=== PATIENT | female | born 1960 | race Caucasian/White ===

== ENCOUNTER 2024-04-29 21:31 | Observation (INO) ==
--- NOTE | 2024-04-29 22:07 | EKG ---
Test Reason : sob Blood Pressure : */* mmHG Vent. Rate : 107 BPM Atrial Rate : 107 BPM P-R Int : 244 ms QRS Dur : 72 ms QT Int : 306 ms P-R-T Axes : 54 86 68 degrees QTc Int : 408 ms Sinus tachycardia with 1st degree AV block with premature supraventricular complexes Minimal voltage criteria for LVH, may be normal variant ( Brent product ) Borderline ECG When compared with ECG of 16-JAN-2024 21:24, premature supraventricular complexes are now present NM interval has increased T wave inversion no longer evident in Inferior leads Confirmed by Julián Bowers MD ([id number]) on 04/30/2024 7:01:46 AM Referred By: Confirmed By: Julián Bowers MD
--- NOTE | 2024-04-29 22:09 | DR.FBACK ---
HPI Time Seen Time Seen by Provider: 04/29/24 21:55 PCP Primary Care Physician: Tessa HPI Comment HPI Comment: History as below. Complaint Chief Complaint Doctor Comments: Patient is 64yr old female in ER with Chief Complaint:: pt and family states" she has been disorentied at nights but is normal throughout the day. She also complained of lower back pain but has since resolved." COVID-19 Coronavirus risk:travel/contact w/high risk person: No Has patient experienced Coronavirus symptoms: No Reviewed Nurses Notes Review: Yes Source History Provided: Patient Mode of Arrival Mode of Arrival: Wheelchair Timing Onset of Chief Complaint: 04/29/24 PMH PMH Past Medical History: Yes Past Medical History: Anxiety, Arthritis, Asthma, COPD, Migraines, Headaches, Hypertension and Cancer Past Surgical History: Yes Surgical History: Appendectomy and Mastectomy Past Surgical History Comment: Breast Family History History of Family Medical Conditions: Yes Family Medical History: Diabetes Mellitus, Cancer, [place], Coronary Artery Disease and Hypertension Social History Do you use any recreational Drugs:: No Travel Risk Coronavirus risk:travel/contact w/high risk person: No Has patient experienced Coronavirus symptoms: No Infectious screening In the last 2 months have you had wt loss of >10#?: NO Have you had fever, night sweats or hemotysis?: No Have you traveled outside the country in the last 6 months?: No Isolation: Standard ROS Review of Systems Constitutional: No Symptoms Reported Eyes: No Symptoms Reported ENTM: No Symptoms Reported Respiratoy: No Symptoms Reported Cardiovascular: No Symptoms Reported Gastrointestinal/Abdominal: No Symptoms Reported Genitourinary: No Symptoms Reported Neurological: No Symptoms Reported Musculoskeletal: No Symptoms Reported Integumentary: No Symptoms Reported Hematologic/Lymphatic: No Symptoms Reported Endocrine: No Symptoms Reported Psychiatric: No Symptoms Reported All Other Systems: Reviewed and Negative PE Vitals Vital Signs: Temp Pulse Resp BP Pulse Ox O2 Del Method O2 Flow Rate 04/30/24 02:15 91 H 29 H 90 L 04/30/24 02:00 91 H 27 H 91 L 04/30/24 01:45 90 31 H 92 L 04/30/24 01:30 90 28 H 93 L 04/30/24 01:15 91 H 27 H 94 L 04/30/24 01:00 92 H 30 H 95 04/30/24 00:45 91 H 24 91 L 04/30/24 00:41 95 H 31 H 88 L Nasal Cannula 4 04/30/24 00:15 94 H 29 H 93 L Nasal Cannula 4 04/30/24 00:00 94 H 29 H 90 L Nasal Cannula 4 04/29/24 23:45 94 H 29 H 92 L Nasal Cannula 4 04/29/24 23:30 96 H 31 H 93 L Nasal Cannula 4 04/29/24 23:15 96 H 29 H 92 L Nasal Cannula 4 04/29/24 23:03 104 H 85 L Nasal Cannula 4 04/29/24 22:51 99 H 30 H 88 L Nasal Cannula 4 04/29/24 22:30 123/57 04/29/24 22:30 123/57 04/29/24 22:30 123/57 04/29/24 22:30 123/57 04/29/24 22:30 123/57 04/29/24 22:30 103 H 31 H 91 L Nasal Cannula 3 04/29/24 22:30 103 H 31 H 91 L Nasal Cannula 3 04/29/24 22:15 104 H 36 H 91 L Nasal Cannula 3 04/29/24 22:00 119/57 04/29/24 22:00 104 H 35 H 88 L Nasal Cannula 04/29/24 21:59 105 H 32 H 88 L Nasal Cannula 3 04/29/24 21:51 98.1 F 120 H 24 142/65 87 L General Limitations: No Limitations General Appearance: Alert and In Distress Head Head Exam: Normal Inspection Eyes Eye exam: Normal Appearance; negative Scleral Icterus or Conjunctival Injection ENT ENT Exam: Normal Exam, Normal Oropharynx, Normal External Ear Exam and TM's Normal Bilaterally Chest Chest Inspection: Normal Inspection and Symmetric Chest Wall Rise; negative Tenderness Respiratory Respiratory Exam: Normal Lung Sounds Bilat and Accessory Muscle Use; negative Chest Wall Tenderness Respiratory Exam: Bilateral: Wheezing and Bilateral: Rhonchi Cardiovascular Cardiovascular Exam: Regular Rate, Normal Rhythm and Normal Heart Sounds; negative Systolic Murmur or Diastolic Murmur Abdominal Exam Abdominal Exam: Normal Inspection, Normal Bowel Sounds and Soft; negative Tenderness Genitourinary External Exam: Female: Deferred : Speculum Exam (Female): Deferred : Bimanual Exam (female): Deferred Extremities Extremities Exam: Normal Inspection Back Back Exam: Normal Inspection; negative (R) CVA Tenderness or (L) CVA Tenderness Neurological Neurological Exam: Alert and Oriented X3; negative Motor Sensory Deficit Psychiatric Psychiatric Exam: Normal Affect and Normal Mood Skin Skin Exam: Warm and Intact MDM Differential Diagnosis Differential Diagnosis: DJD, Musculoskeletal Pain, Pyelonephritis (AMS, UTI, COPD EXACERBATION, BRONCHITIS) and Strain ROR Labs Reviewed 04/29/24 22:02 04/29/24 22:02 Laboratory: WBC 15.2 X10^3/uL (3.6-10.0) H 04/29/24 22:02 RBC 4.96 X10^6/uL (3.5-5.4) 04/29/24 22:02 Hgb 14.2 g/dL (12.0-16.0) 04/29/24 22:02 Hct 44.0 % (36.0-47.0) 04/29/24 22:02 MCV 88.8 fL (80.0-100.0) 04/29/24 22:02 MCH 28.7 pg (27.0-34.0) 04/29/24 22:02 MCHC 32.4 g/dL (33.0-35.0) L 04/29/24 22:02 RDW 16.9 % (11.6-16.5) H 04/29/24 22:02 Plt Count 220 X10^3/uL (150.0-450.0) 04/29/24 22:02 MPV 7.5 fL (7.4-11.0) 04/29/24 22:02 Neut % (Auto) 80.0 % (42.0-75.0) H 04/29/24 22:02 Lymph % (Auto) 10.8 % (21.0-51.0) L 04/29/24 22:02 [place] % (Auto) 8.0 % (0.0-13.0) 04/29/24 22:02 Eos % (Auto) 0.3 % (0.9-2.9) L 04/29/24 22:02 Baso % (Auto) 0.9 % (0.2-1.0) 04/29/24 22:02 Neut # (Auto) 12.1 x10^3/uL (2.2-4.8) H 04/29/24 22:02 Lymph # (Auto) 1.6 X10^3/uL (1.3-2.9) 04/29/24 22:02 [place] # (Auto) 1.2 x10^3/uL (0.3-0.8) H 04/29/24 22:02 Eos # (Auto) 0.0 x10^3/uL (0.0-0.2) 04/29/24 22:02 Baso # (Auto) 0.1 X10^3/uL (0.0-0.1) 04/29/24 22:02 Absolute Nucleated RBC 0.0 /100WBC 04/29/24 22:02 PT 13.9 SECONDS (11.8-14.3) 04/29/24 21:45 INR Target Range - 04/29/24 21:45 INR 1.09 (0.8-1.3) 04/29/24 21:45 APTT 28.7 SECONDS (22.9-36.5) 04/29/24 21:45 PTT Comment - 04/29/24 21:45 Sample Site Lbra 04/29/24 22:32 ABG pH 7.390 (7.35-7.45) 04/29/24 22:32 ABG pCO2 73.0 mmHg (35.0-45.0) H* 04/29/24 22:32 ABG pO2 51.0 mmHg (80.0-100.0) L 04/29/24 22:32 ABG HCO3 44.2 mmol/L (22-26) H* 04/29/24 22:32 ABG O2 Saturation 85.0 % (90-100) L 04/29/24 22:32 ABG Base Excess 15.8 mmol/L (-2.0-2.0) H 04/29/24 22:32 Abdi Test Na 04/29/24 22:32 A-a Gradient 86.0 mmHg 04/29/24 22:32 FiO2 32.0 04/29/24 22:32 Blood Gas Comments Marcus abg well-mtf 04/29/24 22:32 Sodium 140 mmol/L (136-145) 04/29/24 22:02 Corrected Sodium TNP 04/29/24 22:02 Potassium 4.0 mmol/L (3.5-5.1) 04/29/24 22:02 Chloride 100 mmol/L (98-107) 04/29/24 22:02 Carbon Dioxide 38.8 mmol/L (21-32) H 04/29/24 22:02 BUN 11 mg/dL (7-18) 04/29/24 22:02 Creatinine 0.53 mg/dL (0.55-1.02) L 04/29/24 22:02 Est GFR (MDRD) Af Amer > 60 (>60) 04/29/24 22:02 Est GFR (MDRD) Non-Af > 60 (>60) 04/29/24 22:02 Glucose 104 mg/dL (65-99) H 04/29/24 22:02 Calcium 8.4 mg/dL (8.5-10.1) L 04/29/24 22:02 Corrected Calcium 9.4 mg/dL (8.5-10.1) 04/29/24 22:02 Magnesium 1.8 mg/dL (2.0-2.9) L 04/29/24 22:02 Total Bilirubin 0.50 mg/dL (0.2-1.0) 04/29/24 22:02 AST 16 Units/L (15-37) 04/29/24 22:02 ALT 10 Units/L (12-78) L 04/29/24 22:02 Alkaline Phosphatase 99 Units/L (46-116) 04/29/24 22:02 Creatine Kinase 47 Units/L (26-192) 04/29/24 22:02 Troponin I High Sens 8.8 ng/L (4.0-60.0) 04/29/24 22:02 B-Natriuretic Peptide 105 pg/mL (0-79) H 04/29/24 22:02 Total Protein 7.4 g/dL (6.4-8.2) 04/29/24 22:02 Albumin 2.7 g/dL (3.4-5.0) L 04/29/24 22:02 Globulin 4.7 g/dL (2.5-4.5) H 04/29/24 22:02 Albumin/Globulin Ratio 0.6 Ratio (1.1-2.1) L 04/29/24 22:02 Specimen Type Clean catch urine 04/29/24 23:04 Urine Color Yellow (YELLOW) 04/29/24 23:04 Urine Appearance Cloudy (CLEAR) 04/29/24 23:04 Urine pH 8.0 (5.0 - 8.0) 04/29/24 23:04 Ur Specific [place] 1.015 (1.000-1.030) 04/29/24 23:04 Urine Protein Negative (NEGATIVE) 04/29/24 23:04 Urine Glucose (UA) Negative (NEGATIVE) 04/29/24 23:04 Urine Ketones Negative (NEGATIVE) 04/29/24 23:04 Urine Blood Negative (NEGATIVE) 04/29/24 23:04 Urine Nitrite Negative (NEGATIVE) 04/29/24 23:04 Urine Bilirubin Negative (NEGATIVE) 04/29/24 23:04 Urine Urobilinogen 2+ (NORMAL) 04/29/24 23:04 Ur Leukocyte Esterase 1+ (NEGATIVE) 04/29/24 23:04 Urine RBC 0-2 /HPF (0-3) 04/29/24 23:04 Urine WBC 0-2 /HPF (0-5) 04/29/24 23:04 Ur Squamous Epith Cells Rare /HPF (NEGATIVE) 04/29/24 23:04 Amorphous Sediment 4+ /HPF (NEGATIVE) 04/29/24 23:04 Urine Bacteria Negative /HPF (NEGATIVE) 04/29/24 23:04 Urine Mucus Moderate /HPF (NEGATIVE) 04/29/24 23:04 Ur Culture Indicated? No/not indicated 04/29/24 23:04 SARS-CoV-2 (PCR) Negative (NEGATIVE) 04/30/24 00:39 Influenza Type A (PCR) Negative (NEGATIVE) 04/30/24 00:39 Influenza Type B (PCR) Negative (NEGATIVE) 04/30/24 00:39 RSV (PCR) Negative (NEGATIVE) 04/30/24 00:39 Opioid Opioid Risk Tool Age (Ancelmo box if 16-45): No History of Preadolescent Sexual Abuse: No Total: 0 Total Score Risk Category: Low Risk Copyright: Fabricio RAMOS predicting aberrant behaviors Discharge Plan Diagnosis Discharge Problem: COPD exacerbation, Bronchitis, Hypercapnic respiratory failure, chronic, Hypoxia, AMS (altered mental status) Discharge Plan Patient Disposition: 09 ADMITTED INPATIENT Condition: Stable Orders to Discharge Patient Discharge Orders: Transfer (Routine); Ordered 04/30/24 Ordered By: ADRIENNE VILLELA
[2024-04-29 22:10] LABS: BASOPHILS # (AUTO) 0.1 X10^3/uL (0.0-0.1); BASOPHILS % (AUTO) 0.9 % (0.2-1.0); EOSINOPHILS % (AUTO) 0.3 % (0.9-2.9); HEMOGLOBIN 14.2 g/dL (12.0-16.0); LYMPHOCYTES # (AUTO) 1.6 X10^3/uL (1.3-2.9); LYMPHOCYTES % (AUTO) 10.8 % (21.0-51.0); MEAN CORPUSCULAR HEMOGLOBIN 28.7 pg (27.0-34.0); MEAN CORPUSCULAR HGB CONC 32.4 g/dL (33.0-35.0); MEAN CORPUSCULAR VOLUME 88.8 fL (80.0-100.0); MEAN PLATELET VOLUME 7.5 fL (7.4-11.0); MONOCYTES # (AUTO) 1.2 x10^3/uL (0.3-0.8); NEUTROPHILS # (AUTO) 12.1 x10^3/uL (2.2-4.8); PLATELET COUNT 220 X10^3/uL (150.0-450.0); RED BLOOD COUNT 4.96 X10^6/uL (3.5-5.4); RED CELL DISTRIBUTION WIDTH 16.9 % (11.6-16.5); WHITE BLOOD COUNT 15.2 X10^3/uL (3.6-10.0)
[2024-04-29 22:17] LABS: INR 1.09 (0.8-1.3)
[2024-04-29 22:29] LABS: ALANINE AMINOTRANSFERASE 10 Units/L (12-78); ALBUMIN 2.7 g/dL (3.4-5.0); ALKALINE PHOSPHATASE 99 Units/L (46-116); ASPARTATE AMINO TRANSFERASE 16 Units/L (15-37); BLOOD UREA NITROGEN 11 mg/dL (7-18); CALCIUM 8.4 mg/dL (8.5-10.1); CARBON DIOXIDE 38.8 mmol/L (21-32); CHLORIDE 100 mmol/L (98-107); COR CA(FOR HYPOALB) 9.4 mg/dL (8.5-10.1); CREATINE KINASE 47 Units/L (26-192); CREATININE 0.53 mg/dL (0.55-1.02); GLUCOSE 104 mg/dL (65-99); MAGNESIUM 1.8 mg/dL (2.0-2.9); SODIUM 140 mmol/L (136-145); TOTAL PROTEIN 7.4 g/dL (6.4-8.2); eGFR NON BLACK RACES > 60 (>60)
[2024-04-29 22:38] LABS: ABG BASE EXCESS 15.8 mmol/L (-2.0-2.0)
[2024-04-29 22:40] LABS: ABG HCO3 44.2 mmol/L (22-26)
--- NOTE | 2024-04-29 23:05 | RAD ---
EXAM: CHEST X-RAYHISTORY: Shortness of breath.TECHNIQUE: AP and lateral chest x-ray.COMPARISON: None available.FINDINGS:The heart size and mediastinum are within normal limits. The visualized bony structures are within normal limits.There is asymmetrical prominence of the bronchopulmonary markings throughout the right lung; DDX includes mild asymmetrical noncardiogenic pulmonary congestion, bronchitis, and acute bronchopneumonia in the appropriate clinical setting. Clinical correlation is advised.There is blunting of the right lateral costophrenic angle consistent with a small pleural effusion.There is lung parenchymal hyperinflation/hyperlucency consistent with COPD/emphysema. No pneumothorax is seen.IMPRESSION:1. Asymmetrical prominence of the bronchopulmonary markings throughout the right lung; DDX includes mild asymmetrical noncardiogenic pulmonary congestion, bronchitis, and acute bronchopneumonia in the appropriate clinical setting. Clinical correlation is advised.2. Blunting of the right lateral costophrenic angle consistent with a small pleural effusion.3. Lung parenchymal hyperinflation/hyperlucency consistent with COPD/emphysema. No pneumothorax is seen.4. Recommend clinical correlation and appropriate follow-up x-ray evaluation to ensure interval clearance as clinically warranted.5. Consider follow evaluation with noncontrast chest CT for further characterization as clinically warranted.THIS IS AN ELECTRONICALLY VERIFIED FINAL REPORT04/29/2024 11:02 PM - Electronically signed by Tamiko Chatman MD
[2024-04-29 23:13] LABS: BILIRUBIN,URINE NEGATIVE (NEGATIVE); BLOOD/HEMOGLOBIN,URINE NEGATIVE (NEGATIVE); GLUCOSE, URINE NEGATIVE (NEGATIVE); KETONES,URINE NEGATIVE (NEGATIVE); LEUKOCYTE ESTERASE ,URINE 1+ (NEGATIVE); NITRITES,URINE NEGATIVE (NEGATIVE); PROTEIN,URINE NEGATIVE (NEGATIVE); UROBILINOGEN,URINE 2+ (NORMAL)
[2024-04-29 23:16] LABS: APPEARANCE,URINE CLOUDY (CLEAR); COLOR,URINE YELLOW (YELLOW)
[2024-04-29 23:26] LABS: BACTERIA,URINE NEGATIVE /HPF (NEGATIVE); RBC,URINE 0-2 /HPF (0-3); SQUAMOUS EPITHELIAL CELL,UR RARE /HPF (NEGATIVE)
[2024-04-30] MEDS: SOLU-Medrol 125 MG VIAL IVP ONE (00:43)
[2024-04-30] MEDS: DUONEB 0.5 MG/3 MG (3 mL) NEB ONE (00:47)
--- NOTE | 2024-04-30 00:57 | CT ---
EXAM:BRAIN W/O CONHISTORY:AMS;COMPARISON:None. .br.br skullbase to the vertex using standard departmental protocol. Sagittal and coronal reformatted images were performed. Dose reduction techniques including Automated Exposure Control (AEC) and adjustment of mA and kV were utilized.FINDINGS:The sulci, cisterns and ventricles are age appropriate. Mild cortical atrophy compatible with patient's age. There is no evidence of acute territorial infarction, hemorrhage, mass, mass effect or midline shift. There are no abnormal intra-axial or extra-axial fluid collections. The visualized paranasal sinuses and mastoid air cells are predominantly clear.IMPRESSION:No evidence of acute intracranial abnormality.THIS IS AN ELECTRONICALLY VERIFIED FINAL REPORT04/30/2024 12:54 AM - Electronically signed by Kemar Park MD
[2024-04-30] MEDS: NS 1,000 ML IV 1,000 ML IV SCH (03:38)
[2024-04-30 04:55] LABS: BASOPHILS # (AUTO) 0.1 X10^3/uL (0.0-0.1); BASOPHILS % (AUTO) 0.5 % (0.2-1.0); HEMATOCRIT 41.8 % (36.0-47.0); HEMOGLOBIN 13.4 g/dL (12.0-16.0); LYMPHOCYTES # (AUTO) 0.6 X10^3/uL (1.3-2.9); LYMPHOCYTES % (AUTO) 5.1 % (21.0-51.0); MEAN CORPUSCULAR HEMOGLOBIN 28.6 pg (27.0-34.0); MEAN CORPUSCULAR HGB CONC 32.1 g/dL (33.0-35.0); MEAN PLATELET VOLUME 8.1 fL (7.4-11.0); MONOCYTES # (AUTO) 0.2 x10^3/uL (0.3-0.8); MONOCYTES % (AUTO) 1.8 % (0.0-13.0); NEUTROPHILS % (AUTO) 92.6 % (42.0-75.0); PLATELET COUNT 190 X10^3/uL (150.0-450.0); RED BLOOD COUNT 4.69 X10^6/uL (3.5-5.4); WHITE BLOOD COUNT 11.9 X10^3/uL (3.6-10.0)
[2024-04-30 05:02] LABS: BLOOD UREA NITROGEN 12 mg/dL (7-18); CALCIUM 8.6 mg/dL (8.5-10.1); CARBON DIOXIDE 37.1 mmol/L (21-32); CHLORIDE 100 mmol/L (98-107); COR NA(FOR HYPERGLY) 139 mmol/L (136-145); CREATININE 0.46 mg/dL (0.55-1.02); GLUCOSE 146 mg/dL (65-99); POTASSIUM 4.2 mmol/L (3.5-5.1); SODIUM 138 mmol/L (136-145); eGFR NON BLACK RACES > 60 (>60)
[2024-04-30 05:18] LABS: INR 1.16 (0.8-1.3)
[2024-04-30] MEDS ORDERED: DUONEB 0.5 MG/3 MG (3 mL) NEB SCH (06:00)
[2024-04-30] MEDS: DUONEB 0.5 MG/3 MG (3 mL) NEB SCH (06:18)
[2024-04-30 06:27] LABS: ABG BASE EXCESS 14.1 mmol/L (-2.0-2.0)
[2024-04-30 06:28] LABS: ABG HCO3 43.1 mmol/L (22-26)
[2024-04-30 06:33] LABS: ANISOCYTOSIS SLIGHT; PLATELET MORPHOLOGY COMMENT NORMAL (NORMAL)
[2024-04-30 06:34] LABS: STOMATOCYTES PRESENT
[2024-04-30] MEDS ORDERED: CONSULT PHARMACY - POTASSIUM & MAGNESIUM XX SCH (07:00)
[2024-04-30] MEDS: PULMICORT NEB TX 0.5 MG NEB SCH (08:43)
[2024-04-30] MEDS: LEVAQUIN PREMIX IV 500 MG 500 MG/100 ML BAG IV SCH (09:13)
[2024-04-30] MEDS: VISBIOME PROBIOTIC CAP 112.5 B or equivalent PO SCH (09:13)
[2024-04-30] MEDS: MAG-OX TAB PO SCH (09:13)
[2024-04-30] MEDS ORDERED: PATIENT'S HOME MEDICATION (Fluticasone-Umeclidin-Vilanter [Trelegy Ellipta] 100-62.5-25 mc IN SCH (13:45)
[2024-04-30] MEDS: NICOTINE PATCH TD SCH (14:17)
[2024-04-30] MEDS: LIPITOR TAB 40 MG PO SCH (14:18)
[2024-04-30] MEDS: ZOLOFT PO SCH (14:18)
[2024-04-30] MEDS: SOLU-Medrol 40 MG VIAL IVP ONE (14:18)
[2024-04-30] MEDS: NEURONTIN CAP 400 MG PO SCH (14:18)
[2024-04-30] MEDS: ZOLOFT ONE (14:24)
[2024-04-30] MEDS: CALCIUM CARBONATE PO SCH (14:27)
[2024-04-30] MEDS: VITAMIN D3 PO SCH (14:27)
--- NOTE | 2024-04-30 14:56 | DR.H&P ---
H&P History & Physical for Day of: H&P Date: 04/30/24 Chief Complaint Chief Complaint: AMS History of Present Illness History of Present Illness: Patient brought to the ER by family due to delirium at night. Has been occurring for a couple of weeks. In the ER she was found to be in chronic hypercapnic respiratory failure with acute hypoxemic respiratory failure. Did well with BiPAP overnight. Reports she feels like she is almost back at baseline and was want to go home today. She is willing to stay. She was a daily smoker until yesterday per her report. ROS: Positive for cough, dyspnea, and fatigue. 12 point ROS otherwise negative. PE: Extremely thin, elderly female in no acute distress. Trachea midline. Head NCAT. EOMI. Hearing intact conversation. Heart regular rate and rhythm. Lungs greatly diminished with fair aeration. Bowel sounds are present and belly is soft/nontender/nondistended. Mood and affect are appropriate. No swelling of her extremities. Past Medical History Past Medical History: Anxiety, Arthritis, Asthma, COPD, Migraines, Headaches, Hypertension and Cancer Past Surgical History Surgical History: Appendectomy and Mastectomy Family History Family Medical History: Diabetes Mellitus, Cancer, [place], Coronary Artery Disease and Hypertension Social History Does patient currently use any type of tobacco product: Yes Type of Tobacco Use: Cigarettes How many years tobacco product used: 50 Alcohol Use: None Drug Use: None Medications Home Medications: Home Medications Medication Instructions Recorded Confirmed Type atorvastatin 40 mg tablet 40 mg PO QDAY 01/16/24 04/30/24 History calcium carbonate-vitamin D3 600 1 tab PO DAILY 01/16/24 04/30/24 History mg-125 unit tablet fluticasone fur. 100 mcg-umeclid 1 ea inhalation QDAY 01/16/24 04/30/24 History 62.5 mcg-vilant 25 mcg inhalat.powder (Trelegy Ellipta) gabapentin 800 mg tablet 800 mg PO TID 01/16/24 04/30/24 History losartan 25 mg tablet 25 mg PO QDAY 01/16/24 04/30/24 History sertraline 100 mg tablet 100 mg PO QDAY 01/16/24 04/30/24 History tizanidine 4 mg tablet 4 mg PO QPM PRN 01/16/24 04/30/24 History albuterol sulfate 90 mcg/actuation 1 puff inhalation Q4H PRN wheezing 04/30/24 04/30/24 History aerosol inhaler Allergies Allergies Allergy/AdvReac Type Severity Reaction Status Date / Time Penicillins Allergy Verified 01/16/24 21:19 Labs 04/30/24 04:15 04/30/24 04:15 Labs: 04/29/24 22:02 Blood Blood Culture Gram Stain - Final 04/30/24 04:32 Sputum - Expectorated Sputum - Final Laboratory WBC 11.9 X10^3/uL (3.6-10.0) H 04/30/24 04:15 RBC 4.69 X10^6/uL (3.5-5.4) 04/30/24 04:15 Hgb 13.4 g/dL (12.0-16.0) 04/30/24 04:15 Hct 41.8 % (36.0-47.0) 04/30/24 04:15 MCV 89.0 fL (80.0-100.0) 04/30/24 04:15 MCH 28.6 pg (27.0-34.0) 04/30/24 04:15 MCHC 32.1 g/dL (33.0-35.0) L 04/30/24 04:15 RDW 17.0 % (11.6-16.5) H 04/30/24 04:15 Plt Count 190 X10^3/uL (150.0-450.0) 04/30/24 04:15 Plt Count Comment Adequate (ADEQUATE) 04/30/24 04:15 MPV 8.1 fL (7.4-11.0) 04/30/24 04:15 Neut % (Auto) 92.6 % (42.0-75.0) H 04/30/24 04:15 Lymph % (Auto) 5.1 % (21.0-51.0) L 04/30/24 04:15 [place] % (Auto) 1.8 % (0.0-13.0) 04/30/24 04:15 Eos % (Auto) 0.0 % (0.9-2.9) L 04/30/24 04:15 Baso % (Auto) 0.5 % (0.2-1.0) 04/30/24 04:15 Neut # (Auto) 11.0 x10^3/uL (2.2-4.8) H 04/30/24 04:15 Lymph # (Auto) 0.6 X10^3/uL (1.3-2.9) L 04/30/24 04:15 [place] # (Auto) 0.2 x10^3/uL (0.3-0.8) L 04/30/24 04:15 Eos # (Auto) 0.0 x10^3/uL (0.0-0.2) 04/30/24 04:15 Baso # (Auto) 0.1 X10^3/uL (0.0-0.1) 04/30/24 04:15 Absolute Nucleated RBC 0.0 /100WBC 04/30/24 04:15 Total Counted 100 04/30/24 04:15 Neutrophils % (Manual) 92 % (39-76) H 04/30/24 04:15 Lymphocytes % (Manual) 6 % (13-43) L 04/30/24 04:15 Monocytes % (Manual) 2 % (4-9) L 04/30/24 04:15 Plt Morphology Comment Normal (NORMAL) 04/30/24 04:15 RBC Morphology Abnormal (NORMAL) A 04/30/24 04:15 Anisocytosis Slight A 04/30/24 04:15 Stomatocytes Present 04/30/24 04:15 PT 14.6 SECONDS (11.8-14.3) 04/30/24 04:15 INR Target Range - 04/30/24 04:15 INR 1.16 (0.8-1.3) 04/30/24 04:15 APTT 29.6 SECONDS (22.9-36.5) 04/30/24 04:15 PTT Comment - 04/30/24 04:15 Sample Site Lbra 04/30/24 06:22 ABG pH 7.350 (7.35-7.45) 04/30/24 06:22 ABG pCO2 78.0 mmHg (35.0-45.0) H* 04/30/24 06:22 ABG pO2 53.0 mmHg (80.0-100.0) L 04/30/24 06:22 ABG HCO3 43.1 mmol/L (22-26) H* 04/30/24 06:22 ABG O2 Saturation 85.0 % (90-100) L 04/30/24 06:22 ABG Base Excess 14.1 mmol/L (-2.0-2.0) H 04/30/24 06:22 Abdi Test Na 04/30/24 06:22 A-a Gradient 106.0 mmHg 04/30/24 06:22 FiO2 36.0 04/30/24 06:22 Blood Gas Comments Marcus abg well-mtf 04/30/24 06:22 Sodium 138 mmol/L (136-145) 04/30/24 04:15 Corrected Sodium 139 mmol/L (136-145) 04/30/24 04:15 Potassium 4.2 mmol/L (3.5-5.1) 04/30/24 04:15 Chloride 100 mmol/L (98-107) 04/30/24 04:15 Carbon Dioxide 37.1 mmol/L (21-32) H 04/30/24 04:15 BUN 12 mg/dL (7-18) 04/30/24 04:15 Creatinine 0.46 mg/dL (0.55-1.02) L 04/30/24 04:15 Est GFR (MDRD) Af Amer > 60 (>60) 04/30/24 04:15 Est GFR (MDRD) Non-Af > 60 (>60) 04/30/24 04:15 Glucose 146 mg/dL (65-99) H 04/30/24 04:15 Calcium 8.6 mg/dL (8.5-10.1) 04/30/24 04:15 Corrected Calcium 9.4 mg/dL (8.5-10.1) 04/29/24 22:02 Magnesium 1.8 mg/dL (2.0-2.9) L 04/30/24 04:15 Total Bilirubin 0.50 mg/dL (0.2-1.0) 04/29/24 22:02 AST 16 Units/L (15-37) 04/29/24 22:02 ALT 10 Units/L (12-78) L 04/29/24 22:02 Alkaline Phosphatase 99 Units/L (46-116) 04/29/24 22:02 Creatine Kinase 47 Units/L (26-192) 04/29/24 22:02 Troponin I High Sens 8.8 ng/L (4.0-60.0) 04/29/24 22:02 B-Natriuretic Peptide 105 pg/mL (0-79) H 04/29/24 22:02 Total Protein 7.4 g/dL (6.4-8.2) 04/29/24 22:02 Albumin 2.7 g/dL (3.4-5.0) L 04/29/24 22:02 Globulin 4.7 g/dL (2.5-4.5) H 04/29/24 22:02 Albumin/Globulin Ratio 0.6 Ratio (1.1-2.1) L 04/29/24 22:02 Specimen Type Clean catch urine 04/29/24 23:04 Urine Color Yellow (YELLOW) 04/29/24 23:04 Urine Appearance Cloudy (CLEAR) 04/29/24 23:04 Urine pH 8.0 (5.0 - 8.0) 04/29/24 23:04 Ur Specific [place] 1.015 (1.000-1.030) 04/29/24 23:04 Urine Protein Negative (NEGATIVE) 04/29/24 23:04 Urine Glucose (UA) Negative (NEGATIVE) 04/29/24 23:04 Urine Ketones Negative (NEGATIVE) 04/29/24 23:04 Urine Blood Negative (NEGATIVE) 04/29/24 23:04 Urine Nitrite Negative (NEGATIVE) 04/29/24 23:04 Urine Bilirubin Negative (NEGATIVE) 04/29/24 23:04 Urine Urobilinogen 2+ (NORMAL) 04/29/24 23:04 Ur Leukocyte Esterase 1+ (NEGATIVE) 04/29/24 23:04 Urine RBC 0-2 /HPF (0-3) 04/29/24 23:04 Urine WBC 0-2 /HPF (0-5) 04/29/24 23:04 Ur Squamous Epith Cells Rare /HPF (NEGATIVE) 04/29/24 23:04 Amorphous Sediment 4+ /HPF (NEGATIVE) 04/29/24 23:04 Urine Bacteria Negative /HPF (NEGATIVE) 04/29/24 23:04 Urine Mucus Moderate /HPF (NEGATIVE) 04/29/24 23:04 Ur Culture Indicated? No/not indicated 04/29/24 23:04 SARS-CoV-2 (PCR) Negative (NEGATIVE) 04/30/24 00:39 Influenza Type A (PCR) Negative (NEGATIVE) 04/30/24 00:39 Influenza Type B (PCR) Negative (NEGATIVE) 04/30/24 00:39 RSV (PCR) Negative (NEGATIVE) 04/30/24 00:39 Physical Exam Vital Signs: Vital Signs Temperature 97.7 F Pulse Rate [Left Radial] 78 Pulse Rate 80 Respiratory Rate 18 Blood Pressure [Left Calf] 131/66 O2 Sat by Pulse Oximetry 99 O2 Sat by Pulse Oximetry 89 O2 Sat by Pulse Oximetry 95 Assessment/Plan (1) Sepsis: Qualifiers: Acute respiratory failure type: with hypoxia Sepsis acute organ dysfunction status: with acute organ dysfunction Sepsis type: sepsis due to unspecified organism Severe sepsis acute organ dysfunction type: acute respiratory failure Severe sepsis shock status: without septic shock Qualified Code(s): A41.9 - Sepsis, unspecified organism; R65.20 - Severe sepsis without septic shock; J96.01 - Acute respiratory failure with hypoxia Narrative Support Text: Tachycardia, tachypnea, leukocytosis, PNA/COPD exacerbation, acute respiratory f ailure, acute delirium. Status: Acute (2) Community acquired pneumonia: Qualifiers: Laterality: right Lung location: lower lobe of lung Qualified Code(s): J18.9 - Pneumonia, unspecified organism Narrative Support Text: Continue Levaquin. Status: Acute (3) COPD exacerbation: Narrative Support Text: Try to get Trelegy from home. Nebs as needed. Steroids and Levaquin. Status: Acute (4) Hypercapnic respiratory failure, chronic: Narrative Support Text: BiPAP. Status: Chronic (5) Hypoxia: Narrative Support Text: O2 supplementation. Status: Acute (6) Tobacco user: Narrative Support Text: Nicotine patch. Status: Chronic
[2024-04-30] MEDS: ZANAFLEX PO PRN (21:03)
[2024-04-30] MEDS: COLACE CAP 100 MG PO SCH (21:03)
[2024-04-30] MEDS: CHECK PATCH XX SCH (21:04)
[2024-05-01 05:05] LABS: BASOPHILS # (AUTO) 0.1 X10^3/uL (0.0-0.1); BASOPHILS % (AUTO) 0.8 % (0.2-1.0); EOSINOPHILS % (AUTO) 0.2 % (0.9-2.9); HEMOGLOBIN 12.4 g/dL (12.0-16.0); LYMPHOCYTES # (AUTO) 1.5 X10^3/uL (1.3-2.9); MEAN CORPUSCULAR HGB CONC 32.5 g/dL (33.0-35.0); MEAN CORPUSCULAR VOLUME 89.2 fL (80.0-100.0); MEAN PLATELET VOLUME 8.2 fL (7.4-11.0); MONOCYTES # (AUTO) 0.9 x10^3/uL (0.3-0.8); MONOCYTES % (AUTO) 8.3 % (0.0-13.0); NEUTROPHILS % (AUTO) 76.7 % (42.0-75.0); PLATELET COUNT 188 X10^3/uL (150.0-450.0); RED BLOOD COUNT 4.27 X10^6/uL (3.5-5.4); RED CELL DISTRIBUTION WIDTH 17.1 % (11.6-16.5); WHITE BLOOD COUNT 10.4 X10^3/uL (3.6-10.0)
[2024-05-01] MEDS: MILK OF MAGNESIA PO PRN (05:15)
[2024-05-01 05:26] LABS: ALANINE AMINOTRANSFERASE 10 Units/L (12-78); ALBUMIN 2.2 g/dL (3.4-5.0); ALKALINE PHOSPHATASE 75 Units/L (46-116); ASPARTATE AMINO TRANSFERASE 12 Units/L (15-37); BLOOD UREA NITROGEN 15 mg/dL (7-18); CARBON DIOXIDE 38.6 mmol/L (21-32); CHLORIDE 104 mmol/L (98-107); COR CA(FOR HYPOALB) 9.4 mg/dL (8.5-10.1); CREATININE 0.53 mg/dL (0.55-1.02); GLUCOSE 97 mg/dL (65-99); POTASSIUM 4.2 mmol/L (3.5-5.1); SODIUM 142 mmol/L (136-145); TOTAL PROTEIN 6.4 g/dL (6.4-8.2); eGFR NON BLACK RACES > 60 (>60)
[2024-05-01 05:45] VITALS: BMI 16.5
[2024-05-01] MEDS ORDERED: ZOLOFT ONE (07:56)
[2024-05-01] MEDS: LOVENOX INJ 40 MG SYR SC SCH (08:18)
[2024-05-01] MEDS: SOLU-Medrol 40 MG VIAL IVP SCH (08:18)
[2024-05-01] MEDS: COZAAR PO SCH (08:18)
[2024-05-01] MEDS: CITRACAL + VITAMIN D PO SCH (08:19)
[2024-05-01 09:01] LABS: TSH (3RD GENERATION) 1.368 uIU/mL (0.358-3.74)
[2024-05-01] MEDS: PREDNISONE TAB 10 MG PO SCH (09:31)
[2024-05-01] MEDS: DALIRESP PO SCH (09:31)
[2024-05-01] MEDS: AVELOX IV 400 MG/250 ML BAG 400 MG/250 ML PIGGYBACK IV SCH (09:32)
--- NOTE | 2024-05-01 11:10 | RAD ---
EXAM:CHEST, 1 VIEWHISTORY:PNEUMONIA;COMPARISON:Prior study or studies were utilized for comparison during interpretation with the most relevant dated 04/29/2024TECHNIQUE:CHEST, 1 VIEWFINDINGS:Chest:Lines and tubes: Cardiac leads overlie the chest.Mediastinum: Borderline cardiomegaly.Pulmonary vessels: There is pulmonary vascular congestion.Lung kimbrough: Patchy opacities are seenPleura: There is blunting of the right costophrenic angle. No pneumothorax.Bones and soft tissues: No acute osseous or soft tissue abnormality.IMPRESSION:1. Findings suggest heart failureTHIS IS AN ELECTRONICALLY VERIFIED FINAL REPORT05/01/2024 11:06 AM - Electronically signed by Jim Christensen MD
[2024-05-02 04:06] VITALS: RESP 19; TEMP 98.6
[2024-05-02 05:18] LABS: BASOPHILS # (AUTO) 0.1 X10^3/uL (0.0-0.1); BASOPHILS % (AUTO) 0.8 % (0.2-1.0); EOSINOPHILS % (AUTO) 0.3 % (0.9-2.9); HEMATOCRIT 36.7 % (36.0-47.0); HEMOGLOBIN 11.8 g/dL (12.0-16.0); LYMPHOCYTES # (AUTO) 1.5 X10^3/uL (1.3-2.9); LYMPHOCYTES % (AUTO) 15.1 % (21.0-51.0); MEAN CORPUSCULAR HEMOGLOBIN 28.7 pg (27.0-34.0); MEAN CORPUSCULAR VOLUME 89.6 fL (80.0-100.0); MONOCYTES # (AUTO) 0.9 x10^3/uL (0.3-0.8); MONOCYTES % (AUTO) 8.9 % (0.0-13.0); NEUTROPHILS # (AUTO) 7.5 x10^3/uL (2.2-4.8); NEUTROPHILS % (AUTO) 74.9 % (42.0-75.0); PLATELET COUNT 200 X10^3/uL (150.0-450.0); RED CELL DISTRIBUTION WIDTH 17.4 % (11.6-16.5); WHITE BLOOD COUNT 10.1 X10^3/uL (3.6-10.0)
[2024-05-02 05:24] LABS: ALANINE AMINOTRANSFERASE 20 Units/L (12-78); ALBUMIN 2.1 g/dL (3.4-5.0); ALKALINE PHOSPHATASE 65 Units/L (46-116); ASPARTATE AMINO TRANSFERASE 27 Units/L (15-37); BLOOD UREA NITROGEN 12 mg/dL (7-18); CARBON DIOXIDE 36.3 mmol/L (21-32); CHLORIDE 106 mmol/L (98-107); COR CA(FOR HYPOALB) 9.5 mg/dL (8.5-10.1); CREATININE 0.55 mg/dL (0.55-1.02); GLUCOSE 82 mg/dL (65-99); POTASSIUM 4.2 mmol/L (3.5-5.1); SODIUM 142 mmol/L (136-145); eGFR NON BLACK RACES > 60 (>60)
[2024-05-02] MEDS: MILK OF MAGNESIA PO SCH (08:21)
[2024-05-02] MEDS: ZOLOFT ONE (08:22)
[2024-05-02 08:48] VITALS: BP 175/93
[2024-05-02 08:53] VITALS: PULSE 85; O2SAT 90
== END 2024-05-02 11:30 | disposition home or self-care (01) ==
LOC: ER 21:31 → MED/SURG 21:31
PROVIDERS: ADMIT Family Medicine; ATTEND Obstetrics & Gynecology Obstetrics
DX: I10 Essential (primary) hypertension; Z03.818 Encounter for observation for suspected exposure to other biological agents ruled out; J44.1 Chronic obstructive pulmonary disease with (acute) exacerbation; E83.42 Hypomagnesemia; R53.83 Other fatigue; R00.0 Tachycardia, unspecified; Z59.86 Financial insecurity; R41.82 Altered mental status, unspecified; F41.8 Other specified anxiety disorders; R26.89 Other abnormalities of gait and mobility; R05.8 Other specified cough; J96.01 Acute respiratory failure with hypoxia; Z72.0 Tobacco use; B95.2 Enterococcus as the cause of diseases classified elsewhere; J96.12 Chronic respiratory failure with hypercapnia

== ENCOUNTER 2024-05-25 14:01 | Observation (INO) ==
[2024-05-25 14:32] LABS: ABG BASE EXCESS 11.5 mmol/L (-2.0-2.0)
[2024-05-25] MEDS: SOLU-Medrol 125 MG VIAL IVP ONE (14:32)
[2024-05-25 14:34] LABS: ABG ALLEN TEST POS; ABG HCO3 42.5 mmol/L (22-26)
--- NOTE | 2024-05-25 14:38 | EKG ---
Test Reason : short of breath Blood Pressure : */* mmHG Vent. Rate : 104 BPM Atrial Rate : * BPM P-R Int : * ms QRS Dur : 82 ms QT Int : 316 ms P-R-T Axes : * 78 53 degrees QTc Int : 415 ms Sinus tachycardia Septal infarct , age undetermined Abnormal ECG When compared with ECG of 29-APR-2024 22:03, Septal infarct is now present Confirmed by Julián Bowers MD ([id number]) on 05/25/2024 4:36:50 PM Referred By: Confirmed By: Julián Bowers MD
[2024-05-25 14:39] LABS: BASOPHILS % (AUTO) 0.3 % (0.2-1.0); EOSINOPHILS % (AUTO) 0.3 % (0.9-2.9); HEMATOCRIT 46.2 % (36.0-47.0); HEMOGLOBIN 14.8 g/dL (12.0-16.0); LYMPHOCYTES # (AUTO) 1.1 X10^3/uL (1.3-2.9); MEAN CORPUSCULAR HEMOGLOBIN 28.8 pg (27.0-34.0); MEAN CORPUSCULAR VOLUME 89.8 fL (80.0-100.0); MONOCYTES % (AUTO) 7.9 % (0.0-13.0); NEUTROPHILS # (AUTO) 10.1 x10^3/uL (2.2-4.8); NEUTROPHILS % (AUTO) 82.5 % (42.0-75.0); PLATELET COUNT 225 X10^3/uL (150.0-450.0); RED BLOOD COUNT 5.15 X10^6/uL (3.5-5.4); RED CELL DISTRIBUTION WIDTH 16.9 % (11.6-16.5); WHITE BLOOD COUNT 12.3 X10^3/uL (3.6-10.0)
[2024-05-25 14:55] LABS: ALANINE AMINOTRANSFERASE 21 Units/L (12-78); ALBUMIN 2.8 g/dL (3.4-5.0); ALKALINE PHOSPHATASE 160 Units/L (46-116); ASPARTATE AMINO TRANSFERASE 23 Units/L (15-37); BLOOD UREA NITROGEN 12 mg/dL (7-18); CALCIUM 9.3 mg/dL (8.5-10.1); CARBON DIOXIDE 40.9 mmol/L (21-32); CHLORIDE 101 mmol/L (98-107); COR CA(FOR HYPOALB) 10.3 mg/dL (8.5-10.1); GLUCOSE 106 mg/dL (65-99); POTASSIUM 3.7 mmol/L (3.5-5.1); SODIUM 141 mmol/L (136-145); TOTAL PROTEIN 8.4 g/dL (6.4-8.2); eGFR NON BLACK RACES > 60 (>60)
--- NOTE | 2024-05-25 15:00 | DR.SOBA ---
HPI Time Seen Time Seen by Provider: 05/25/24 14:22 Primary Care Physician Primary Care Physician: andrea HPI Comment HPI Comment: Patient is a current smoker on home O2. Patient states about 1 hour ago she started having worsening cough and shortness of breath. Patient states she feels like she might of been worsening over the last week or so and had called her PCP who was working on sending her some antibiotic. Complaints Chief Complaint:: cant breath. 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 has had some cough with green sputum that pt states is usual for her. has been on o2 at 2 liters at home. she is now on 4 liters and hand and fingers are cold to touch and discolored. lips are blue in appearance. she is using some accessory muscles to breath but is able to answer questions Self Treatment fo Chief Complaint: increased o2 COVID-19 Coronavirus risk:travel/contact w/high risk person: No Has patient experienced Coronavirus symptoms: No Coronavirus symptoms experienced: Coughing Source History Provided: Patient and Family Member Mode of Arrival Mode of Arrival: Wheelchair Timing Onset of Chief Complaint: 05/25/24 PMH PMH Past Medical History: Yes Past Medical History: Anxiety, Arthritis, Asthma, COPD, Migraines, Headaches, Hypertension and Cancer Past Surgical History: Yes Surgical History: Appendectomy and Mastectomy Family History History of Family Medical Conditions: Yes Family Medical History: Diabetes Mellitus, Cancer, [place], Coronary Artery Disease and Hypertension Social History Does any household member use tobacco: No Alcohol Use: None Do you use any recreational Drugs:: No Lives With: Family Lives Where: Home Travel Risk Coronavirus risk:travel/contact w/high risk person: No Has patient experienced Coronavirus symptoms: No Coronavirus symptoms experienced: Coughing Infectious screening In the last 2 months have you had wt loss of >10#?: NO Have you had fever, night sweats or hemotysis?: No Have you traveled outside the country in the last 6 months?: No Isolation: Standard ROS Review of Systems Constitutional: No Symptoms Reported; negative Fever or Weakness Eyes: No Symptoms Reported ENTM: No Symptoms Reported Respiratoy: See HPI, Short of Breath and Wheezing Cardiovascular: No Symptoms Reported; negative Chest Pain, Edema, Palpitations or Syncope Gastrointestinal/Abdominal: No Symptoms Reported Genitourinary: No Symptoms Reported Neurological: No Symptoms Reported Musculoskeletal: No Symptoms Reported Integumentary: No Symptoms Reported Hematologic/Lymphatic: No Symptoms Reported Endocrine: No Symptoms Reported Psychiatric: No Symptoms Reported All Other Systems: Reviewed and Negative PE Vital Signs Vitals: Vital Signs Temperature 98.1 F Pulse Rate 101 Pulse Rate 101 Pulse Rate 102 Pulse Rate 102 Pulse Rate 103 Pulse Rate 104 Pulse Rate 103 Pulse Rate 103 Pulse Rate 107 Pulse Rate 104 Pulse Rate 107 Pulse Rate 105 Respiratory Rate 32 Respiratory Rate 34 Respiratory Rate 35 Respiratory Rate 30 Respiratory Rate 34 Respiratory Rate 32 Respiratory Rate 36 Respiratory Rate 38 Respiratory Rate 23 Respiratory Rate 56 Respiratory Rate 35 Respiratory Rate 37 Blood Pressure 168/77 Blood Pressure 167/74 Blood Pressure 172/76 Blood Pressure 178/74 Blood Pressure 176/65 Blood Pressure 222/94 O2 Sat by Pulse Oximetry 94 O2 Sat by Pulse Oximetry 95 O2 Sat by Pulse Oximetry 95 O2 Sat by Pulse Oximetry 95 O2 Sat by Pulse Oximetry 95 O2 Sat by Pulse Oximetry 94 O2 Sat by Pulse Oximetry 95 O2 Sat by Pulse Oximetry 96 O2 Sat by Pulse Oximetry 87 O2 Sat by Pulse Oximetry 88 O2 Sat by Pulse Oximetry 83 O2 Sat by Pulse Oximetry 80 General Limitations: No Limitations General Appearance: Alert and In No Apparent Distress Head Head Exam: Normal Inspection Eyes Eye exam: Normal Appearance ENT ENT Exam: Normal Exam Neck Neck Exam: Normal Inspection Chest Chest Inspection: Normal Inspection Respiratory Respiratory Exam: Respiratory Distress and Other (Coarse bilaterally with wheezes bilaterally) Respiratory Exam: Bilateral: Wheezing Cardiovascular Cardiovascular Exam: Regular Rate and Normal Rhythm Abdominal Exam Abdominal Exam: Normal Inspection, Normal Bowel Sounds and Soft Extremities Extremities Exam: Normal Inspection Back Back Exam: Normal Inspection Neurologic Neurological Exam: Alert and Oriented X3 Psychiatric Psychiatric Exam: Normal Affect and Normal Mood Skin Skin Exam: Warm, Dry, Intact and Normal Color COURSE Treatment Treatment: Patient had minimal improvement with treatments in the ER. Suspect COPD exacerbation with pneumonia. Patient's vitals normalized on BiPAP. Consultation Called: 17:08 Consultation Comments: Discussed case with Dr. Ramirez. He is agreeable to admission. [facility] Labs Reviewed 05/25/24 14:16 05/25/24 14:16 Laboratory: WBC 12.3 X10^3/uL (3.6-10.0) H 05/25/24 14:16 RBC 5.15 X10^6/uL (3.5-5.4) 05/25/24 14:16 Hgb 14.8 g/dL (12.0-16.0) 05/25/24 14:16 Hct 46.2 % (36.0-47.0) 05/25/24 14:16 MCV 89.8 fL (80.0-100.0) 05/25/24 14:16 MCH 28.8 pg (27.0-34.0) 05/25/24 14:16 MCHC 32.0 g/dL (33.0-35.0) L 05/25/24 14:16 RDW 16.9 % (11.6-16.5) H 05/25/24 14:16 Plt Count 225 X10^3/uL (150.0-450.0) 05/25/24 14:16 MPV 8.0 fL (7.4-11.0) 05/25/24 14:16 Neut % (Auto) 82.5 % (42.0-75.0) H 05/25/24 14:16 Lymph % (Auto) 9.0 % (21.0-51.0) L 05/25/24 14:16 [place] % (Auto) 7.9 % (0.0-13.0) 05/25/24 14:16 Eos % (Auto) 0.3 % (0.9-2.9) L 05/25/24 14:16 Baso % (Auto) 0.3 % (0.2-1.0) 05/25/24 14:16 Neut # (Auto) 10.1 x10^3/uL (2.2-4.8) H 05/25/24 14:16 Lymph # (Auto) 1.1 X10^3/uL (1.3-2.9) L 05/25/24 14:16 [place] # (Auto) 1.0 x10^3/uL (0.3-0.8) H 05/25/24 14:16 Eos # (Auto) 0.0 x10^3/uL (0.0-0.2) 05/25/24 14:16 Baso # (Auto) 0.0 X10^3/uL (0.0-0.1) 05/25/24 14:16 Absolute Nucleated RBC 0.0 /100WBC 05/25/24 14:16 Sample Site Rra 05/25/24 16:52 ABG pH 7.220 (7.35-7.45) L 05/25/24 16:52 ABG pCO2 106.0 mmHg (35.0-45.0) H* 05/25/24 16:52 ABG pO2 73.0 mmHg (80.0-100.0) L 05/25/24 16:52 ABG HCO3 43.4 mmol/L (22-26) H* 05/25/24 16:52 ABG O2 Saturation 91.0 % (90-100) 05/25/24 16:52 ABG Base Excess 11.6 mmol/L (-2.0-2.0) H 05/25/24 16:52 Abdi Test Pos 05/25/24 16:52 A-a Gradient 151.0 mmHg 05/25/24 16:52 FiO2 50.0 05/25/24 16:52 Blood Gas Comments Pt ruchi well eb 05/25/24 16:52 Sodium 141 mmol/L (136-145) 05/25/24 14:16 Corrected Sodium TNP 05/25/24 14:16 Potassium 3.7 mmol/L (3.5-5.1) 05/25/24 14:16 Chloride 101 mmol/L (98-107) 05/25/24 14:16 Carbon Dioxide 40.9 mmol/L (21-32) H 05/25/24 14:16 BUN 12 mg/dL (7-18) 05/25/24 14:16 Creatinine 0.50 mg/dL (0.55-1.02) L 05/25/24 14:16 Est GFR (MDRD) Af Amer > 60 (>60) 05/25/24 14:16 Est GFR (MDRD) Non-Af > 60 (>60) 05/25/24 14:16 Glucose 106 mg/dL (65-99) H 05/25/24 14:16 Calcium 9.3 mg/dL (8.5-10.1) 05/25/24 14:16 Corrected Calcium 10.3 mg/dL (8.5-10.1) H 05/25/24 14:16 Magnesium 2.0 mg/dL (2.0-2.9) 05/25/24 14:16 Total Bilirubin 0.50 mg/dL (0.2-1.0) 05/25/24 14:16 AST 23 Units/L (15-37) 05/25/24 14:16 ALT 21 Units/L (12-78) 05/25/24 14:16 Alkaline Phosphatase 160 Units/L (46-116) H 05/25/24 14:16 Troponin I High Sens 12.2 ng/L (4.0-60.0) 05/25/24 14:16 B-Natriuretic Peptide 273 pg/mL (0-79) H 05/25/24 14:16 Total Protein 8.4 g/dL (6.4-8.2) H 05/25/24 14:16 Albumin 2.8 g/dL (3.4-5.0) L 05/25/24 14:16 Globulin 5.6 g/dL (2.5-4.5) H 05/25/24 14:16 Albumin/Globulin Ratio 0.5 Ratio (1.1-2.1) L 05/25/24 14:16 Opioid Opioid Risk Tool Age (Ancelmo box if 16-45): No History of Preadolescent Sexual Abuse: No Total: 0 Total Score Risk Category: Low Risk Copyright: Fabricio RAMOS predicting aberrant behaviors Discharge Plan Diagnosis Discharge Problem: Community acquired pneumonia, COPD exacerbation, Hypercapnic respiratory failure, chronic, Hypoxia Discharge Plan Patient Disposition: 09 ADMITTED INPATIENT Condition: Stable Prescriptions: No Action albuterol sulfate 90 mcg/actuation HFA aerosol inhaler 1 puff INHALATION Q4H PRN (Reason: wheezing) roflumilast 500 mcg Tablet 500 mcg PO DAILY Qty: 30 6RF atorvastatin 40 mg tablet 40 mg PO QDAY tizanidine 4 mg tablet 4 mg PO QPM PRN sertraline 100 mg tablet 100 mg PO QDAY gabapentin 800 mg tablet 800 mg PO TID losartan 25 mg tablet 25 mg PO QDAY Trelegy Ellipta 100-62.5-25 mcg blister with device 1 ea inhalation QDAY doxycycline monohydrate 100 mg tablet 100 mg PO BID buspirone 10 mg tablet 5 - 10 mg PO TID PRN (Reason: anxiety) montelukast 10 mg tablet 10 mg PO QDAY hydroxyzine HCl 25 mg tablet 25 mg PO BID budesonide 0.5 mg/2 mL suspension for nebulization 0.5 mg inhalation BID Health Concerns: Post Hospitalization: new medications and changes needed to prevent readmission or further decline. Pt educated and given instructions on all concerns. Plan of Treatment: Continue with present treatment and follow up plan. Pt is to keep follow up appointment as instructed and take medications as ordered. Orders to Discharge Patient Discharge Orders: Transfer (Routine); Ordered 05/25/24 Ordered By: Ariel Lei Follow ups/Referrals Follow ups/Referrals: LISA RAMIREZ [Primary Care Provider] - 3 days Instructions Stand Alone Forms: Find Help Web Site, Post Hospital Follow Up Care
[2024-05-25 16:56] LABS: ABG BASE EXCESS 11.6 mmol/L (-2.0-2.0)
[2024-05-25 16:57] LABS: ABG ALLEN TEST POS; ABG HCO3 43.4 mmol/L (22-26)
[2024-05-25] MEDS: NS 1/2 1,000 ML IV 1,000 ML IV SCH (19:05)
[2024-05-25 19:09] LABS: ABG HCO3 44.3 mmol/L (22-26)
[2024-05-25] MEDS: LEVAQUIN PREMIX IV 750 MG 750 MG/150 ML BAG IV SCH (19:16)
[2024-05-25 20:08] VITALS: BMI 13.8
[2024-05-25] MEDS: DUONEB 0.5 MG/3 MG (3 mL) NEB SCH (20:43)
[2024-05-25] MEDS: PULMICORT NEB TX 0.5 MG NEB SCH (20:43)
[2024-05-25] MEDS: ROBITUSSIN DM PO SCH (21:32)
[2024-05-26 05:51] LABS: ABG BASE EXCESS 14.4 mmol/L (-2.0-2.0)
[2024-05-26 05:52] LABS: ABG ALLEN TEST POS; ABG HCO3 43.7 mmol/L (22-26)
[2024-05-26 05:58] LABS: BASOPHILS % (AUTO) 0.3 % (0.2-1.0); HEMATOCRIT 39.2 % (36.0-47.0); HEMOGLOBIN 12.7 g/dL (12.0-16.0); LYMPHOCYTES # (AUTO) 0.5 X10^3/uL (1.3-2.9); MEAN CORPUSCULAR HEMOGLOBIN 28.7 pg (27.0-34.0); MEAN CORPUSCULAR HGB CONC 32.3 g/dL (33.0-35.0); MEAN CORPUSCULAR VOLUME 88.7 fL (80.0-100.0); MEAN PLATELET VOLUME 8.1 fL (7.4-11.0); MONOCYTES # (AUTO) 0.5 x10^3/uL (0.3-0.8); MONOCYTES % (AUTO) 4.9 % (0.0-13.0); NEUTROPHILS # (AUTO) 9.5 x10^3/uL (2.2-4.8); NEUTROPHILS % (AUTO) 89.8 % (42.0-75.0); PLATELET COUNT 211 X10^3/uL (150.0-450.0); RED BLOOD COUNT 4.42 X10^6/uL (3.5-5.4); RED CELL DISTRIBUTION WIDTH 16.5 % (11.6-16.5); WHITE BLOOD COUNT 10.6 X10^3/uL (3.6-10.0)
[2024-05-26 06:19] LABS: ALANINE AMINOTRANSFERASE 17 Units/L (12-78); ALBUMIN 2.3 g/dL (3.4-5.0); ALKALINE PHOSPHATASE 136 Units/L (46-116); ASPARTATE AMINO TRANSFERASE 14 Units/L (15-37); BLOOD UREA NITROGEN 14 mg/dL (7-18); CALCIUM 8.7 mg/dL (8.5-10.1); CARBON DIOXIDE 39.3 mmol/L (21-32); CHLORIDE 101 mmol/L (98-107); COR CA(FOR HYPOALB) 10.1 mg/dL (8.5-10.1); CREATININE 0.41 mg/dL (0.55-1.02); GLUCOSE 109 mg/dL (65-99); POTASSIUM 4.4 mmol/L (3.5-5.1); SODIUM 141 mmol/L (136-145); eGFR NON BLACK RACES > 60 (>60)
--- NOTE | 2024-05-26 07:00 | RAD ---
EXAMINATION:CHEST, 1 VIEWHISTORY:SOB ; .COMPARISON STUDY:Chest x-ray 05/25/2024TECHNIQUE:Single portable AP view of the chestFINDINGS:Interstitial alveolar infiltrates scattered throughout both lungs predominantly in the upper lungs and right pulmonary base. Mild cardiac silhouette enlargement. CP angles are sharp. Bones are intact.IMPRESSION:Persistent bilateral pulmonary infiltrates.THIS IS AN ELECTRONICALLY VERIFIED FINAL REPORT05/26/2024 6:57 AM - Electronically signed by Niki Adler MD
[2024-05-26] MEDS: SOLU-Medrol 40 MG VIAL IVP SCH (09:33)
[2024-05-26] MEDS: LOVENOX INJ 40 MG SYR SC SCH (09:33)
[2024-05-26] MEDS: VISBIOME PROBIOTIC CAP 112.5 B or equivalent PO SCH (09:33)
[2024-05-26] MEDS: NICOTINE PATCH TD SCH (09:34)
[2024-05-26] MEDS: ZOFRAN INJ 4 MG VIAL IVP PRN (10:42)
[2024-05-26] MEDS: NS 1/2 1,000 ML IV 1,000 ML IV ONE (18:21)
[2024-05-26] MEDS: RESTORIL CAP 15 MG PO PRN (21:33)
[2024-05-27 05:01] LABS: ABG BASE EXCESS 15.1 mmol/L (-2.0-2.0)
[2024-05-27 05:03] LABS: ABG ALLEN TEST POS; ABG HCO3 44.8 mmol/L (22-26)
[2024-05-27 05:47] LABS: BASOPHILS % (AUTO) 0.5 % (0.2-1.0); HEMATOCRIT 37.4 % (36.0-47.0); HEMOGLOBIN 11.9 g/dL (12.0-16.0); LYMPHOCYTES # (AUTO) 0.4 X10^3/uL (1.3-2.9); LYMPHOCYTES % (AUTO) 4.9 % (21.0-51.0); MEAN CORPUSCULAR HEMOGLOBIN 28.3 pg (27.0-34.0); MEAN CORPUSCULAR HGB CONC 31.8 g/dL (33.0-35.0); MEAN CORPUSCULAR VOLUME 89.1 fL (80.0-100.0); MONOCYTES # (AUTO) 0.4 x10^3/uL (0.3-0.8); MONOCYTES % (AUTO) 4.8 % (0.0-13.0); NEUTROPHILS # (AUTO) 8.1 x10^3/uL (2.2-4.8); NEUTROPHILS % (AUTO) 89.8 % (42.0-75.0); PLATELET COUNT 225 X10^3/uL (150.0-450.0); RED CELL DISTRIBUTION WIDTH 16.4 % (11.6-16.5)
[2024-05-27 06:36] LABS: ALANINE AMINOTRANSFERASE 15 Units/L (12-78); ALBUMIN 2.1 g/dL (3.4-5.0); ALKALINE PHOSPHATASE 114 Units/L (46-116); ASPARTATE AMINO TRANSFERASE 11 Units/L (15-37); BLOOD UREA NITROGEN 16 mg/dL (7-18); CALCIUM 8.8 mg/dL (8.5-10.1); CARBON DIOXIDE 42.3 mmol/L (21-32); CHLORIDE 102 mmol/L (98-107); COR CA(FOR HYPOALB) 10.3 mg/dL (8.5-10.1); COR NA(FOR HYPERGLY) 141 mmol/L (136-145); CREATININE 0.43 mg/dL (0.55-1.02); GLUCOSE 125 mg/dL (65-99); POTASSIUM 4.4 mmol/L (3.5-5.1); SODIUM 140 mmol/L (136-145); TOTAL PROTEIN 6.5 g/dL (6.4-8.2); eGFR NON BLACK RACES > 60 (>60)
[2024-05-27] MEDS: PREDNISONE TAB 20 MG PO SCH (08:42)
[2024-05-27] MEDS: NS 1/2 1,000 ML IV 1,000 ML IV ONE ×2 (08:48→10:30)
[2024-05-27] MEDS ORDERED: PATIENT'S HOME MEDICATION (Fluticasone-Umeclidin-Vilanter [Trelegy Ellipta] 100-62.5-25 mc IN SCH (09:00)
[2024-05-27] MEDS: DUONEB 0.5 MG/3 MG (3 mL) NEB ONE (10:31)
[2024-05-27] MEDS ORDERED: ZOLOFT ONE (10:36)
[2024-05-27] MEDS: DALIRESP PO SCH (10:39)
[2024-05-27] MEDS: ZOLOFT PO SCH (10:39)
[2024-05-27] MEDS: MOBIC TAB 15 MG PO SCH (10:40)
[2024-05-27] MEDS: ATARAX TAB 25 MG PO SCH (10:40)
[2024-05-27] MEDS: ULTRAM PO PRN (10:40)
[2024-05-27] MEDS: BUSPAR PO PRN (10:40)
[2024-05-27] MEDS: COZAAR PO SCH (10:40)
[2024-05-27] MEDS: SINGULAIR TAB 10 MG PO SCH (10:40)
[2024-05-27] MEDS: LIPITOR TAB 40 MG PO SCH ×2 (10:44→22:49)
[2024-05-27] MEDS: NEURONTIN CAP 400 MG PO SCH (14:24)
[2024-05-27] MEDS: COLACE CAP 100 MG PO SCH (22:49)
[2024-05-28] MEDS ORDERED: NS 1/2 1,000 ML IV 1,000 ML IV ONE (01:18)
[2024-05-28 05:46] LABS: ABG BASE EXCESS 15.5 mmol/L (-2.0-2.0)
[2024-05-28 05:47] LABS: ABG ALLEN TEST POS; ABG HCO3 44.6 mmol/L (22-26)
[2024-05-28 05:53] LABS: BASOPHILS # (AUTO) 0.2 X10^3/uL (0.0-0.1); BASOPHILS % (AUTO) 1.6 % (0.2-1.0); HEMATOCRIT 37.6 % (36.0-47.0); HEMOGLOBIN 11.8 g/dL (12.0-16.0); LYMPHOCYTES # (AUTO) 0.9 X10^3/uL (1.3-2.9); LYMPHOCYTES % (AUTO) 8.4 % (21.0-51.0); MEAN CORPUSCULAR HGB CONC 31.4 g/dL (33.0-35.0); MEAN CORPUSCULAR VOLUME 89.2 fL (80.0-100.0); MEAN PLATELET VOLUME 7.9 fL (7.4-11.0); MONOCYTES # (AUTO) 0.8 x10^3/uL (0.3-0.8); MONOCYTES % (AUTO) 7.1 % (0.0-13.0); NEUTROPHILS # (AUTO) 9.4 x10^3/uL (2.2-4.8); NEUTROPHILS % (AUTO) 82.9 % (42.0-75.0); PLATELET COUNT 244 X10^3/uL (150.0-450.0); RED BLOOD COUNT 4.22 X10^6/uL (3.5-5.4); RED CELL DISTRIBUTION WIDTH 16.4 % (11.6-16.5); WHITE BLOOD COUNT 11.3 X10^3/uL (3.6-10.0)
[2024-05-28 06:09] LABS: ALANINE AMINOTRANSFERASE 12 Units/L (12-78); ALKALINE PHOSPHATASE 108 Units/L (46-116); ASPARTATE AMINO TRANSFERASE 11 Units/L (15-37); BLOOD UREA NITROGEN 17 mg/dL (7-18); CALCIUM 8.7 mg/dL (8.5-10.1); CARBON DIOXIDE 42.5 mmol/L (21-32); CHLORIDE 100 mmol/L (98-107); COR CA(FOR HYPOALB) 10.3 mg/dL (8.5-10.1); CREATININE 0.37 mg/dL (0.55-1.02); GLUCOSE 74 mg/dL (65-99); POTASSIUM 3.9 mmol/L (3.5-5.1); SODIUM 142 mmol/L (136-145); TOTAL PROTEIN 6.2 g/dL (6.4-8.2); eGFR NON BLACK RACES > 60 (>60)
[2024-05-28 06:29] LABS: BASOPHILS % (MANUAL) 1 % (0-1)
[2024-05-28 06:30] LABS: BAND NEUTROPHILS % 3 % (0-10)
[2024-05-28 06:31] LABS: PLATELET MORPHOLOGY COMMENT NORMAL (NORMAL)
[2024-05-28 06:32] LABS: STOMATOCYTES PRESENT
[2024-05-28] MEDS ORDERED: ZOLOFT ONE (08:36)
[2024-05-28] MEDS: COLACE CAP 100 MG PO PRN (21:13)
[2024-05-29] MEDS ORDERED: NS 1/2 1,000 ML IV 1,000 ML IV ONE (05:28)
[2024-05-29 05:50] LABS: ABG BASE EXCESS 19.8 mmol/L (-2.0-2.0)
[2024-05-29 05:51] LABS: ABG ALLEN TEST POS
[2024-05-29 06:00] LABS: BASOPHILS % (AUTO) 0.3 % (0.2-1.0); EOSINOPHILS % (AUTO) 0.1 % (0.9-2.9); HEMATOCRIT 37.7 % (36.0-47.0); HEMOGLOBIN 12.3 g/dL (12.0-16.0); LYMPHOCYTES # (AUTO) 1.2 X10^3/uL (1.3-2.9); MEAN CORPUSCULAR HEMOGLOBIN 28.6 pg (27.0-34.0); MEAN CORPUSCULAR HGB CONC 32.6 g/dL (33.0-35.0); MEAN CORPUSCULAR VOLUME 87.8 fL (80.0-100.0); MEAN PLATELET VOLUME 7.6 fL (7.4-11.0); MONOCYTES # (AUTO) 0.9 x10^3/uL (0.3-0.8); MONOCYTES % (AUTO) 9.3 % (0.0-13.0); NEUTROPHILS # (AUTO) 7.5 x10^3/uL (2.2-4.8); NEUTROPHILS % (AUTO) 78.3 % (42.0-75.0); PLATELET COUNT 257 X10^3/uL (150.0-450.0); RED CELL DISTRIBUTION WIDTH 16.1 % (11.6-16.5); WHITE BLOOD COUNT 9.7 X10^3/uL (3.6-10.0)
[2024-05-29 06:10] LABS: ALANINE AMINOTRANSFERASE 12 Units/L (12-78); ALKALINE PHOSPHATASE 91 Units/L (46-116); ASPARTATE AMINO TRANSFERASE 10 Units/L (15-37); BLOOD UREA NITROGEN 13 mg/dL (7-18); CALCIUM 8.4 mg/dL (8.5-10.1); CARBON DIOXIDE 42.8 mmol/L (21-32); CHLORIDE 102 mmol/L (98-107); CREATININE 0.37 mg/dL (0.55-1.02); GLUCOSE 80 mg/dL (65-99); POTASSIUM 3.7 mmol/L (3.5-5.1); SODIUM 143 mmol/L (136-145); TOTAL PROTEIN 5.9 g/dL (6.4-8.2); eGFR NON BLACK RACES > 60 (>60)
--- NOTE | 2024-05-29 07:33 | RAD ---
EXAM:CHEST, 1 VIEWHISTORY:COPD / PNEUMONIA;COMPARISON:Prior study or studies were utilized for comparison during interpretation with the most relevant dated 05/26/2024TECHNIQUE:CHEST, 1 VIEWFINDINGS:Chest:Lines and tubes: Cardiac leads overlie the chest.Mediastinum: Cardiac and mediastinal shadow is within normal limits for size and contour.Pulmonary vessels: Pulmonary vasculature is prominent.Lung kimbrough: Interstitial markings and hyperinflation of the lungs with diaphragmatic flattening. Patchy opacities are seen, [id number]-leftPleura: There is blunting of the right costophrenic angle. No pneumothorax.Bones and soft tissues: No acute osseous or soft tissue abnormality.IMPRESSION:1. No significant change from 05/26/2024THIS IS AN ELECTRONICALLY VERIFIED FINAL REPORT05/29/2024 7:29 AM - Electronically signed by Jim Christensen MD
[2024-05-29] MEDS: ZOLOFT ONE (10:24)
[2024-05-30 05:10] LABS: BASOPHILS % (AUTO) 0.3 % (0.2-1.0); EOSINOPHILS % (AUTO) 0.5 % (0.9-2.9); HEMATOCRIT 35.9 % (36.0-47.0); HEMOGLOBIN 11.6 g/dL (12.0-16.0); LYMPHOCYTES # (AUTO) 1.4 X10^3/uL (1.3-2.9); LYMPHOCYTES % (AUTO) 16.3 % (21.0-51.0); MEAN CORPUSCULAR HEMOGLOBIN 28.3 pg (27.0-34.0); MEAN CORPUSCULAR HGB CONC 32.2 g/dL (33.0-35.0); MEAN CORPUSCULAR VOLUME 87.8 fL (80.0-100.0); MEAN PLATELET VOLUME 7.6 fL (7.4-11.0); MONOCYTES # (AUTO) 0.6 x10^3/uL (0.3-0.8); NEUTROPHILS # (AUTO) 6.4 x10^3/uL (2.2-4.8); NEUTROPHILS % (AUTO) 75.9 % (42.0-75.0); PLATELET COUNT 239 X10^3/uL (150.0-450.0); RED BLOOD COUNT 4.09 X10^6/uL (3.5-5.4); RED CELL DISTRIBUTION WIDTH 16.2 % (11.6-16.5); WHITE BLOOD COUNT 8.5 X10^3/uL (3.6-10.0)
[2024-05-30 05:32] LABS: ALANINE AMINOTRANSFERASE 11 Units/L (12-78); ALBUMIN 1.9 g/dL (3.4-5.0); ALKALINE PHOSPHATASE 80 Units/L (46-116); ASPARTATE AMINO TRANSFERASE 13 Units/L (15-37); BLOOD UREA NITROGEN 13 mg/dL (7-18); CARBON DIOXIDE 44.2 mmol/L (21-32); CHLORIDE 102 mmol/L (98-107); COR CA(FOR HYPOALB) 9.7 mg/dL (8.5-10.1); CREATININE 0.44 mg/dL (0.55-1.02); GLUCOSE 79 mg/dL (65-99); POTASSIUM 3.6 mmol/L (3.5-5.1); SODIUM 142 mmol/L (136-145); TOTAL PROTEIN 5.7 g/dL (6.4-8.2); eGFR NON BLACK RACES > 60 (>60)
[2024-05-30] MEDS ORDERED: CONSULT PHARMACY - POTASSIUM & MAGNESIUM XX SCH (06:00)
--- NOTE | 2024-05-30 06:35 | RAD ---
EXAM:CHEST, PA/LAT ADULTHISTORY:Shortness of Breath;COMPARISON:05/01/2024FINDINGS:The cardiomediastinal silhouette is stable.Scattered bilateral airspace opacities, [id number]-left. No pneumothorax or effusion.No acute osseous abnormality.IMPRESSION:Bilateral airspace opacities concerning for pneumonia.THIS IS AN ELECTRONICALLY VERIFIED FINAL REPORT05/30/2024 6:31 AM - Electronically signed by Zack Garcia MD
[2024-05-30] MEDS ORDERED: ZOLOFT ONE (08:03)
[2024-05-30] MEDS: K-DUR TAB 20 MEQ PO SCH (09:38)
[2024-05-30 11:15] VITALS: PULSE 91; RESP 21; TEMP 97.3; O2SAT 92
[2024-05-30 12:35] VITALS: BP 135/63
== END 2024-05-30 12:30 | disposition home or self-care (01) ==
LOC: ER 14:01 → ICU 17:18 → INTOOBSV 17:18 → ICU 17:55
PROVIDERS: ADMIT Obstetrics & Gynecology Obstetrics; ATTEND Obstetrics & Gynecology Obstetrics